=== PATIENT | female | born 1970 | race Caucasian/White ===

== ENCOUNTER → 2022-08-10 16:48 | Outpatient (CLI) | payer MEDICAID, SELFPAY | PROVIDERS: PCP Family Medicine; Visit Provider Nurse Practitioner Family | DX: B35.1 Tinea unguium (principal); L60.8 Other nail disorders | CPT/HCPCS: 87220 ==

== ENCOUNTER → 2022-12-23 14:34 | Outpatient (POV) | payer OTHER, SELFPAY | PROVIDERS: Visit Provider Specialist/Technologist | DX: Z00.00 Encounter for general adult medical examination without abnormal findings (principal) ==

== ENCOUNTER 2023-09-29 16:11 | Outpatient (CLI) | payer MEDICAID, SELFPAY ==
--- NOTE | 2023-09-29 16:14 | MM_ITS ---
PROCEDURE INFORMATION: Exam: MG Bilateral Screening 3D Mammography Exam date and time: 09/29/2023 4:11 PM Age: 53 years old Clinical indication: Screening mammogram TECHNIQUE: Imaging protocol: Bilateral Screening tomosynthesis and 2D mammography including computer-aided detection (CAD) when performed. COMPARISON: No relevant prior studies available. FINDINGS: MAMMOGRAPHY: Breast composition: There are scattered areas of fibroglandular density. Mass: None. Architectural distortion: No new or suspicious architectural distortion. Calcifications: No new or suspicious calcifications are present Asymmetric density: No new or suspicious asymmetric density is present Skin thickening: None. Axillary adenopathy: None. IMPRESSION: No mammographic evidence of malignancy. Recommend annual screening mammography unless otherwise clinically indicated. ASSESSMENT: BI-RADS category 1: Negative.
== END 2023-09-29 23:59 | disposition home or self-care (01) ==
LOC: RAD 16:11
PROVIDERS: PCP Family Medicine; Visit Provider Family Medicine
DX: Z12.31 Encounter for screening mammogram for malignant neoplasm of breast (principal)
CPT/HCPCS: 77063; 77067

== ENCOUNTER 2023-10-12 13:05 | Emergency (ER) | payer OTHER, SELFPAY ==
[2023-10-12] VITALS (7 sets, daily range): BP systolic 131–160; BP diastolic 70–91; PULSE 85–91; RESP 18–20; TEMP 36.6; O2SAT 95–100; BMI 47.2
--- NOTE | 2023-10-12 13:12 | ECG_ITS ---
APPROVED REPORT Exam: Resting ECG HR:94 bpm ECG Measurements Heart Rate 94 AXES OK 179 P 38 QRSd 90 QRS 5 QT 351 T 42 QTc 403 Conclusion SINUS RHYTHM WITH OCCASIONAL SUPRAVENTRICULAR PREMATURE COMPLEXES Q waves in the anterior and inferior leads Electronically signed by : DEAN GONAZLEZ, 10/13/2023 21:48:00
--- NOTE | 2023-10-12 13:13 | ED_ITS ---
Discharge Plan Disposition Patient Disposition: Home, Self-Care Condition: Good Prescriptions Prescriptions: No Action bisoprolol-hydrochlorothiazide 10-6.25 mg tablet 1 tab PO DAILY Patient Comments: TAKE 1 TABLET BY MOUTH DAILY lisinopril 20 mg tablet 20 mg PO DAILY Patient Comments: TAKE 1 TABLET BY MOUTH ONCE DAILY simvastatin 10 mg tablet 10 mg PO HS Patient Comments: TAKE 1 TABLET BY MOUTH DAILY EVERY EVENING metformin 500 mg tablet extended release 24 hr 1,000 mg PO BID Patient Comments: TAKE 2 TABLETS BY MOUTH TWICE A DAY Ozempic 1 mg/dose (4 mg/3 mL) pen injector 1 mg SQ WEEKLY Patient Comments: INJECT 1 MG UNDER THE SKIN ONCE WEEKLY DIRECTED fluticasone propionate [Flonase Allergy Relief] 50 mcg/actuation spray,suspension 2 spray intranasal DAILY Qty: 16 3RF Rx Instructions: administer into each nostril loratadine 10 mg tablet 10 mg PO DAILY Qty: 30 2RF glipizide 5 MG tablet 5 mg PO BID Patient Comments: TAKE 1 TABLET BY MOUTH TWICE A DAY Referrals Follow up/Referrals: Hugh Fang [Primary Care Provider] - See instructions Activity Restrictions/Add. Instructions Additional Instructions/Restrictions: Please follow-up with your burglar alarm assembler regarding the Holter monitor and the stress test results. As we discussed, after shared decision-making, we have elected to not proceed with a second heart enzyme level. Please keep a log of any symptoms or features that you notice make her symptoms any better or worse. Please return with any new or worsening symptoms Clinical Impressions Clinical Impression: Acute chest pain Instructions Patient Instructions: DI for Atypical Chest Pain Discharge ED Provider: Angel Crawford Adult HPI General Chief complaint: Shortness of Breath/Dyspnea Stated complaint: SOA Time Seen by Provider: 10/12/23 13:13 History of Present Illness HPI narrative: The patient presents with a chief complaint of intermittent chest discomfort over the past month. The sensation is described as an elephant sitting on the chest and occurs approximately ten times per day. She denies any known lung or heart conditions and is currently awaiting results from a recent stress test. She denies any associated pain, cough, wheezing, or shortness of breath. However, she reports difficulty taking deep breaths during these episodes. The patient has not experienced any nausea, vomiting, or abdominal pain in relation to the chest discomfort. She also denies any history of similar symptoms or previous emergency department visits for this issue. The patient mentions that she has had occasional episodes of a fluttery sensation in the chest, but this is not consistent with the current symptoms. She denies any known irregular heartbeat during these episodes. Her life situation has remained stable, and she does not attribute the symptoms to stress or anxiety. Please note that above description of symptoms, in this electronic medical record under categorization of recalled from ER triage doctor by RN are reflective of an initial nursing assessment, however, is not reflective of my full history and physical exam that was personally taken and clarified. Consequentially, this preceding description of symptoms, which may include the patient's categorized chief complaint in the EMR, do not reflect my personal clinical impression, and the ultimate description of history of present illness and patient stated complaints should be deferred to this section of the note. Unless stated otherwise or congruent with this section of the note, additional signs, symptoms, or incongruence should be interpreted as inaccurate with my clinical impression. Related Data Home Medications Medication Instructions Recorded Confirmed glipizide 5 mg tablet 5 mg PO BID DM 12/13/18 11/03/22 bisoprolol 10 1 tab PO DAILY 11/03/22 11/03/22 mg-hydrochlorothiazide 6.25 mg tablet lisinopril 20 mg tablet 20 mg PO DAILY 11/03/22 11/03/22 metformin 500 mg tablet,extended 1,000 mg PO BID 11/03/22 11/03/22 release 24 hr semaglutide 1 mg/dose (4 mg/3 mL) 1 mg SQ WEEKLY 11/03/22 11/03/22 subcutaneous pen injector (Ozempic) simvastatin 10 mg tablet 10 mg PO HS 11/03/22 11/03/22 Previous Rx's Medication Instructions Recorded fluticasone propionate 50 2 spray intranasal DAILY allergies 11/03/22 mcg/actuation nasal #16 grams spray,suspension (Flonase Allergy Relief) loratadine 10 mg tablet 10 mg PO DAILY ALLERGIES #30 tabs 03/03/23 Allergies Allergy/AdvReac Type Severity Reaction Status Date / Time aspirin [ASPIRIN] Allergy Unknown Verified 10/12/23 13:29 cephalexin [From KEFLEX] Allergy Unknown Verified 10/12/23 13:29 erythromycin base Allergy Unknown Verified 10/12/23 13:29 [ERYTHROMYCIN BASE] Penicillins [PENICILLINS] Allergy Unknown Verified 10/12/23 13:29 sulfamethoxazole Allergy Unknown Verified 10/12/23 13:29 [From BACTRIM] trimethoprim [From BACTRIM] Allergy Unknown Verified 10/12/23 13:29 [facility] Disclaimer: The information contained in this section may have been updated after the patient was seen, as this information can be updated by other users. Medical History (Updated 10/12/23 @ 15:28 by Angel Crawford MD) Right ear pain Hearing loss Diabetes Social History Smoking Status: Never smoker alcohol intake: never current occupational status: other Travel in the last 8 weeks: None ROS Obtained: Yes other As per HPI Physical Exam General General appearance: alert and in no apparent distress Head Head exam: atraumatic and normocephalic Eye Eye exam: Present normal appearance Neck Neck exam: Present normal inspection Chest Chest inspection: Present normal inspection and symmetric chest wall rise Respiratory Respiratory exam: Present normal lung sounds bilaterally; Absent respiratory distress Cardiovascular Cardiovascular exam: Present regular rate and normal rhythm Abdominal Exam Abdominal exam: Present soft Neurological Exam Neurological exam: Present alert and oriented X3 Psychiatric Psychiatric exam: Present normal affect and normal mood Skin Skin exam: Present warm and dry Medical Decision Making Medical Records Medical records reviewed: Yes I reviewed the patient's medical records. [place] Inquiry Pt receiving controlled substance: No Vital Signs: 10/12/23 13:11 10/12/23 13:35 10/12/23 14:01 Temperature 97.8 F Temperature Source Oral Pulse Rate 88 91 H Pulse Rate [Left] 89 Respiratory Rate 20 Blood Pressure 134/82 147/75 H Blood Pressure [Right Arm] 160/91 H Blood Pressure Mean 99 Blood Pressure Mean [Right Arm] 114 Blood Pressure Source [Right Arm] Automatic Cuff Blood Pressure Position [Right Arm] Sitting 02 Sat by Pulse Oximetry 98 96 95 Oxygen Delivery Method Room Air 10/12/23 14:31 10/12/23 15:01 10/12/23 15:30 Temperature Temperature Source Pulse Rate 87 85 85 Pulse Rate [Left] Respiratory Rate Blood Pressure 131/70 134/77 138/77 Blood Pressure [Right Arm] Blood Pressure Mean 90 96 97 Blood Pressure Mean [Right Arm] Blood Pressure Source [Right Arm] Blood Pressure Position [Right Arm] 02 Sat by Pulse Oximetry 99 100 97 Oxygen Delivery Method 10/12/23 16:02 Temperature 97.8 F Temperature Source Pulse Rate 89 Pulse Rate [Left] Respiratory Rate 18 Blood Pressure 138/77 Blood Pressure [Right Arm] Blood Pressure Mean Blood Pressure Mean [Right Arm] Blood Pressure Source [Right Arm] Blood Pressure Position [Right Arm] 02 Sat by Pulse Oximetry Oxygen Delivery Method Room Air Lab Data Lab Results 10/12/23 13:12: WBC 8.9, RBC 4.81, Hgb 15.3, Hct 45.0, MCV 93.5, MCH 31.7 H, MCHC 33.9, RDW 13.9, Plt Count 261, MPV 8.6, Neut % (Auto) 59.4, Lymph % (Auto) 31.4, [place] % (Auto) 7.1, Eos % (Auto) 1.0, Baso % (Auto) 1.1, Neut # (Auto) 5.3, Lymph # (Auto) 2.8, [place] # (Auto) 0.6, Eos # (Auto) 0.1, Baso # (Auto) 0.1, Sodium 138, Potassium 4.0, Chloride 102, Carbon Dioxide 27, Anion Gap 13.0, BUN 15, Creatinine 0.60, Estimated Creat Clear 95, Estimated GFR 105, Est GFR ( Amer) 127, Glucose 160 H, Calcium 10.3 H, Magnesium 1.8, Total Bilirubin 0.5, AST 28, ALT 35, Alkaline Phosphatase 63, Troponin I < 0.01, Total Protein 7.3, Albumin 4.5, Globulin 2.8, Albumin/Globulin Ratio 1.6, Lipase 86, TSH 2.96, Free T4 0.91 10/12/23 13:12 10/12/23 13:12 Orders (Tests/Meds): ED MEDICATIONS Discontinued Medications Generic Name Dose Route Start Last Admin Trade Name Freq PRN Reason Stop Dose Admin Belladonna Alkaloids 60 ml 10/12/23 14:40 10/12/23 14:58 Belladonna Alkaloids 60 Ml Ml PO 10/12/23 14:41 60 ml ONCE ONE Administration Hydroxyzine Pamoate 25 mg 10/12/23 14:40 10/12/23 14:58 Hydroxyzine Pamoate 25mg Capsule PO 10/12/23 14:41 25 mg ONCE ONE Administration ORDERS Category Date Time Status XR chest portable Stat Exams 10/12/23 13:45 Completed CBC w/Auto Diff [Complete Blood Count Auto Diff] Stat Lab 10/12/23 13:12 Completed CMP [Comprehensive Metabolic Panel] Stat Lab 10/12/23 13:12 Completed Free T4 (Free Thyroxine) Stat Lab 10/12/23 13:12 Completed Lipase Stat Lab 10/12/23 13:12 Completed MAG [Magnesium] Stat Lab 10/12/23 13:12 Completed TSH [Thyroid Stimulating Hormone] Stat Lab 10/12/23 13:12 Completed Troponin I Q3H Lab 10/12/23 13:12 Completed HEART Score History (anamnesis): Slightly suspicious ECG: Non-specific disturbance Age: 45-65 years Risk factors: No known risk factors Medical Decision Narrative: Patient with history and exam per above presenting for evaluation of soa, chest pain Diagnoses considered include acs, PE unlikely given low Wells, PERC, gerd, referred pain, panic attack, among others ED workup and treatment included: ED MEDICATIONS Discontinued Medications Generic Name Dose Route Start Last Admin Trade Name Freq PRN Reason Stop Dose Admin Belladonna Alkaloids 60 ml 10/12/23 14:40 10/12/23 14:58 Belladonna Alkaloids 60 Ml Ml PO 10/12/23 14:41 60 ml ONCE ONE Administration Hydroxyzine Pamoate 25 mg 10/12/23 14:40 10/12/23 14:58 Hydroxyzine Pamoate 25mg Capsule PO 10/12/23 14:41 25 mg ONCE ONE Administration ORDERS Category Date Time Status XR chest portable Stat Exams 10/12/23 13:45 Completed CBC w/Auto Diff [Complete Blood Count Auto Diff] Stat Lab 10/12/23 13:12 Completed CMP [Comprehensive Metabolic Panel] Stat Lab 10/12/23 13:12 Completed Free T4 (Free Thyroxine) Stat Lab 10/12/23 13:12 Completed Lipase Stat Lab 10/12/23 13:12 Completed MAG [Magnesium] Stat Lab 10/12/23 13:12 Completed TSH [Thyroid Stimulating Hormone] Stat Lab 10/12/23 13:12 Completed Troponin I Q3H Lab 10/12/23 13:12 Completed Labs were independently interpreted by me, significant for no acute findings Imaging was independently visualized and interpreted by me, significant for no acute findings. Please refer to radiology report for full details. After shared decision making, second troponin declined by patient. I discussed my clinical impression with patient and answered all questions. At this time, the evidence for any other entities in the differential is insufficient to warrant any further testing or ED observation. This was explained to the patient. The patient was advised that persistent or worsening symptoms require further evaluation. I confirmed the patient's understanding of this discussion. Critical Care Critical Care Time Critical Care Time: No
--- NOTE | 2023-10-12 13:45 | XR_ITS ---
FINAL REPORT CLINICAL HISTORY: soa FINDINGS: SINGLE-VIEW CHEST The heart size is normal. The mediastinum is normal. The lungs are clear. There is no pneumothorax. IMPRESSION: No acute cardiopulmonary process. Reviewed, Interpreted and Dictated by Curt Jacques III, MD Transcribed by Jory Santos Authenticated and [facility]
[2023-10-12 13:55] LABS: Basophils # 0.1 K/mm3 (0-0.2); Basophils % 1.1 % (0.1-2.0); Eosinophils # 0.1 K/mm3 (0.0-0.4); Hemoglobin 15.3 g/dL (12.2-16.2); Lymphocytes # 2.8 K/mm3 (0.7-4.5); Lymphocytes % 31.4 % (10-50); Mean Corpuscular HGB Conc 33.9 g/dL (31.8-35.4); Mean Corpuscular Hemoglobin 31.7 pg (27.0-31.2); Mean Corpuscular Volume 93.5 fl (81-99); Mean Platelet Volume 8.6 fl (7.4-10.4); Monocytes # 0.6 K/mm3 (0.1-1.0); Monocytes % 7.1 % (1.7-9.3); Neutrophils # 5.3 K/mm3 (1.8-7.8); Neutrophils % 59.4 % (37.0-80.0); Platelet Count 261 K/mm3 (142-424); Red Blood Count 4.81 M/mm3 (4.20-5.40); Red Cell Distribution Width 13.9 % (11.5-17.5); White Blood Count 8.9 K/mm3 (4.8-10.8)
--- NOTE | 2023-10-12 13:55 | PC.NURSE ---
RAD at BS
[2023-10-12 13:56] LABS: Chloride 102 mmol/L (98-107); Sodium 138 mmol/L (136-145)
[2023-10-12 13:58] LABS: Alanine Aminotransferase 35 U/L (12-78); Aspartate Amino Transferase 28 U/L (14-36); Blood Urea Nitrogen 15 mg/dl (7-17); Creatinine Clearance Estimated 95 mL/min (50-200); Estimated Glomerular Filt Rate 105 ml/min (>60); GFR (African American) 127 ML/MIN (>60)
[2023-10-12 13:59] LABS: Albumin Level 4.5 g/dl (3.5-5.0); Albumin/Globulin Ratio 1.6 (1.1-1.8); Alkaline Phosphatase 63 U/L (38-126); Bilirubin,Total 0.5 mg/dl (0.2-1.3); Calcium 10.3 mg/dl (8.4-10.2); Carbon Dioxide 27 mmol/L (22.0-30.0); Globulin 2.8 g/dL (1.3-3.2); Glucose 160 mg/dl (74-100); Lipase 86 U/L (23-300); Magnesium 1.8 mg/dl (1.6-2.3); Total Protein,Serum 7.3 g/dl (6.3-8.2)
[2023-10-12 14:16] LABS: Free T4 (Free Thyroxine) 0.91 ng/dl (0.78-2.19)
[2023-10-12 14:30] LABS: Thyroid Stimulating Hormone 2.96 uIU/mL (0.465-4.68)
[2023-10-12 14:36] LABS: Troponin I < 0.01 ng/ml (0.00-0.034)
[2023-10-12] MEDS: BELLADONNA ALKALOIDS 60 ML ML PO (14:58)
[2023-10-12] MEDS: hydrOXYzine pamoate 25MG CAPSULE 25 MG PO (14:58)
--- NOTE | 2023-10-12 14:58 | PC.NURSE ---
Dr. Crawford at [facility] to update pt on current POC
== END 2023-10-12 16:03 | disposition home or self-care (01) ==
PROVIDERS: Emergency Provider Emergency Medicine; PCP Family Medicine
DX: R07.9 Chest pain, unspecified (principal); R06.02 Shortness of breath; I49.3 Ventricular premature depolarization; E11.9 Type 2 diabetes mellitus without complications; Z79.84 Long term (current) use of oral hypoglycemic drugs
CPT/HCPCS: 71045; 80053; 83690; 83735; 84439; 84443; 84484; 85025; 93005; 99284

== ENCOUNTER 2025-03-26 09:42 | Outpatient (CLI) | payer OTHER, SELFPAY ==
--- NOTE | 2025-03-26 09:45 | XR_ITS ---
FINAL REPORT TECHNIQUE: Right ankle 3 views CLINICAL HISTORY: ankle swelling..no injury COMPARISON: None FINDINGS: 3 images of the right ankle were obtained. There is no evidence of fracture or dislocation. The joint spaces are intact. A moderate calcaneal plantar spur is present. Mild diffuse soft tissue swelling is present. There are calcifications in the soft tissues adjacent to the medial distal tibia. IMPRESSION: Mild diffuse soft tissue swelling is noted about the ankle, with soft tissue calcifications adjacent to the medial distal tibia. Reviewed, Interpreted and Dictated by Hasmukh Simpson MD Transcribed by Catina Arceo Authenticated and [facility]
[2025-03-26 20:17] LABS: Uric Acid 4.8 mg/dl (2.5-6.2)
== END 2025-03-26 23:59 ==
LOC: RAD 09:42
PROVIDERS: PCP Family Medicine; Visit Provider Nurse Practitioner
DX: M25.471 Effusion, right ankle (principal)
CPT/HCPCS: 73610; 84550